=== PATIENT | female | born 1980 | race Two or more races ===

== ENCOUNTER 2019-12-28 03:36 | Emergency (ER) | payer OTHER ==
[2019-12-28] MEDS ORDERED: LIDOCAINE 1%/EPINEPHRINE INJ 20 ML VIAL INJ ONE (04:19)
--- NOTE | 2019-12-28 04:21 | ER Document Report ---
ED Wound - General Chief Complaint: Laceration Stated Complaint: HEAD LACERATION Notes: Patient is a 39-year-old female that comes emergency department for chief complaint of a head injury. She states that she had diarrhea in the bathroom tonight, she got up, slipped, struck her right forehead, and passed out. She denies any other injuries. She denies vomiting. She denies neck pain, focal numbness or weakness, or any other complaints. Tetanus is not up-to-date. She denies alcohol. Past Medical History - General Information source: Patient - Social History Smoking Status: Never Smoker Frequency of alcohol use: None Drug Abuse: None Lives with: Family Family History: Reviewed & Not Pertinent Patient has suicidal ideation: No Patient has homicidal ideation: No - Immunizations Immunizations up to date: No Hx Diphtheria, Pertussis, Tetanus Vaccination: Yes Review of Systems - Review of Systems Constitutional: No symptoms reported EENT: No symptoms reported Cardiovascular: No symptoms reported Respiratory: No symptoms reported Gastrointestinal: No symptoms reported Genitourinary: No symptoms reported Female Genitourinary: No symptoms reported Musculoskeletal: See HPI Skin: See HPI Hematologic/Lymphatic: No symptoms reported Neurological/Psychological: See HPI Physical Exam - Vital signs Vitals: Temp Pulse Resp BP Pulse Ox 97.7 F 84 16 105/65 100 12/28/19 03:56 12/28/19 03:56 12/28/19 03:56 12/28/19 03:56 12/28/19 03:56 - Notes Notes: GENERAL: Alert, interacts well. No acute distress. HEAD: Normocephalic, there is a approximately 3 cm somewhat vertical partial- thickness laceration over the right upper forehead. No signs of trauma otherwise. EYES: Pupils equal, round, and reactive to light. Extraocular movements intact. ENT: Oral mucosa moist, tongue midline. Oropharynx unremarkable. Airway patent. Nares patent, sinuses non-tender, ear canals unremarkable, TM's intact. NECK: Full range of motion. Supple. Trachea midline. No lymphadenopathy. LUNGS: Clear to auscultation bilaterally, no wheezes, rales, or rhonchi. No respiratory distress. Non-tender chest wall. HEART: Regular rate and rhythm. No murmur ABDOMEN: Soft, non-tender. Non-distended. EXTREMITIES: Moves all 4 extremities spontaneously. No edema, normal radial and dorsalis pedis pulses bilaterally. No cyanosis. BACK: no cervical, thoracic, lumbar midline tenderness. No saddle anesthesia, normal distal neurovascular exam. Moves all extremities in full range of motion. NEUROLOGICAL: Alert and oriented x3. Normal speech. Cranial nerves II through XII grossly intact. Strength 5/5 in all extremities. PSYCH: Normal affect, normal mood. SKIN: Warm, dry, normal turgor. No rashes or lesions noted. Course - Re-evaluation Re-evalutation: Because of patient's loss of consciousness with the head injury CAT scan of the head was performed but this shows no acute findings. Patient is able to ambulate without dizziness, she does have a mild headache, she has no neurological deficits, no other signs of trauma, no other areas of pain. Wound was repaired, discussed wound care, postconcussive syndrome, head injury precautions. interpreter for the deaf at bedside was used for details and for instructions. Patient states appreciation and agreement. Stable and well- appearing at time of discharge. - Vital Signs Vital signs: Temp Pulse Resp BP Pulse Ox 98.1 F 89 14 108/69 100 12/28/19 05:34 12/28/19 05:34 12/28/19 05:34 12/28/19 05:34 12/28/19 05:34 Procedures - Laceration/Wound Repair Right upper forehead Wound length (cm): 3 Wound's Depth, Shape: Irregular Laceration pre-procedure: Sterile PPE donned, Sterile drapes applied, Shur-Clens applied Anesthetic type: 1% Lidocaine w/epi Volume Anesthetic (mLs): 3 Wound explored: Clean, No foreign body removed Wound Repaired With: Dermabond Layer Closure?: Yes Deep Layer Suture Size/Type: 5:0, Chromic Number Deep Layer Sutures: 2 Post-procedure NV exam normal: Yes Complications: No Notes: After the area was cleaned thoroughly and lidocaine with epinephrine was used for anesthesia, 2 subcuticular sutures were placed with chromic, this did approximate the wound very well, after this I was able to pull it together nicely and Dermabond this superficially with good results. Discharge - Discharge Clinical Impression: Forehead laceration Qualifiers: Encounter type: initial encounter Qualified Code(s): S01.81XA - Laceration without foreign body of other part of head, initial encounter Head injury Qualifiers: Encounter type: initial encounter Qualified Code(s): S09.90XA - Unspecified injury of head, initial encounter Condition: Stable Disposition: HOME, SELF-CARE Additional Instructions: The pictures of your head are normal. The stitches underneath the skin will dissolve and do not need to come out. The wound has been closed with Dermabond, this will protect the area, this should fall off in about 5-7 days on its own. You can clean the area but avoid soaking or scrubbing the area. If the dermabond has not come off on its own after a week you can remove this by applying a topical antibiotic. Follow-up with primary care. Return for any concerning symptoms including signs of infection such as pain, developing redness, fever, or any other concerning or worsening symptoms. You have had a head injury, you can have a concussion from this which makes you have dizziness, nausea, headaches. If you get plenty of sleep this will go away faster. You can take Tylenol or ibuprofen for pain, you can take the Zofran we gave you to help with headaches. Come back for any concerning symptoms including if you start vomiting, start having a very bad headache, if your family starts noticing you are confused, or if something is not right. Las imgenes de tu galo son normales. Los puntos debajo de la piel se disolvern y no es necesario que salgan. La herida se carver cerrado con Dermabond, esto proteger el cece, esto debera caerse en unos 5-7 domingo por s solo. Puede limpiar el cece zuleima evite remojar o fregar el cece. Si el dermabond no se carver desprendido por s solo despus de anabell semana, puede eliminarlo aplicando un antibitico tpico. Seguimiento con atencin primaria. Regrese por cualquier sntoma preocupante, incluidos signos de infeccin, juli dolor, enrojecimiento, fiebre o cualquier otro sntoma preocupante o que empeore. Carver sufrido anabell lesin en la galo, puede sufrir anabell conmocin cerebral que le provoca mareos, nuseas y mike de galo. Si duermes lo suficiente, esto desaparecer ms rpido. Puede tonie Tylenol o ibuprofeno para el dolor, puede tonie el Zofran que le dimos para ayudar con los mike de galo. Regrese por cualquier sntoma preocupante, incluso si comienza a vomitar, comienza a tener un dolor de galo muy amol, si rashid aspen comienza a notar que est confundido o si algo no est nataliia.
--- NOTE | 2019-12-28 04:48 | RADIOLOGY REPORT (SQ) ---
EXAM DESCRIPTION: CT HEAD WITHOUT IV CONTRAST COMPLETED DATE/TME: 12/28/2019 04:18 CLINICAL HISTORY: head injury, knocked out COMPARISON: None available TECHNIQUE: Axial CT of the head obtained from the skull apex to the skull base without contrast. FINDINGS: No acute intracranial hemorrhage identified. No mass, mass effect, shift of the midline, abnormal extra-axial fluid collection or CT evidence of acute ischemic change identified. The ventricular system is unremarkable. No acute abnormalities of the supratentorial white matter, basal ganglia, cerebellum, or brainstem. The visualized paranasal sinuses and the mastoids are relatively well aerated. No skull fracture identified. Visualized orbits and globes are unremarkable. IMPRESSION: 1. No acute intracranial abnormality identified. This exam was performed according to our departmental dose-optimization program, which includes automated exposure control, adjustment of the mA and/or kV according to patient size and/or use of iterative reconstruction technique.
[2019-12-28] MEDS ORDERED: IBUPROFEN 600 MG TABLET PO ONE (05:00)
[2019-12-28] MEDS ORDERED: ONDANSETRON ODT 4 MG TAB (6 TAB/ER DISP) PO PRN (05:00)
[2019-12-28] MEDS ORDERED: DIPH/PERTUSS(ACELL)/TETANUS VAC/PF 0.5 ML SYR (>=10YO) IM ONE (05:04)
[2019-12-28 05:36] VITALS: BP 108/69
== END 2019-12-28 05:38 | disposition home or self-care (01) ==
LOC: ER 03:36
DX: S06.9X9A Unspecified intracranial injury with loss of consciousness of unspecified duration, initial encounter (principal); S01.81XA Laceration without foreign body of other part of head, initial encounter; W01.0XXA Fall on same level from slipping, tripping and stumbling without subsequent striking against object, initial encounter; Z23 Encounter for immunization
CPT/HCPCS: 99283; 90471; 70450; 90715; 12052; J3490

== ENCOUNTER 2020-01-22 08:57 | Day surgery (SDC) | payer OTHER ==
[~2020-01-22 08:57] MED LIST: PROPOFOL INJ 200 MG/20 ML VIAL IV ONE
[2020-01-22 12:06] VITALS: BP 116/84
--- NOTE | 2020-01-22 13:42 | Operative Report ---
Operative Report DATE OF SURGERY: 01/22/20 Operative Report: The risk, benefits and alternatives of the procedure including the risk of bleeding, perforation requiring surgery have been explained to the patient in detail and informed consent has been obtained. Patient is taken back to the operating room and placed in a left, lateral decubital position. Timeout was called. Propofol medication is administered. Rectal examination is done which did not reveal any masses, tears or fissures. An Olympus videoscope was introduced into the patient's rectum. Scope was then carefully advanced all the way to the cecum. The cecum was identified by the usual anatomical landmarks including the ileocecal valve as well as the appendiceal office. Photodocumentation is obtained. Scope was then sequentially pulled back via the various segments of the colon including the ascending colon, hepatic flexure, transverse colon, splenic flexure, descending colon finally into the rectosigmoid portions of the colon. Retroflexion maneuver is performed. PREOPERATIVE DIAGNOSIS: Change in bowel habits POSTOPERATIVE DIAGNOSIS: Right side colon Inflammation status post biopsy. Internal hemorrhoids OPERATION: Colonoscopy with biopsy SURGEON: MILKA GUILLORY ANESTHESIA: LMAC TISSUE REMOVED OR ALTERED: As noted above. COMPLICATIONS: None. ESTIMATED BLOOD LOSS: None. INTRAOPERATIVE FINDINGS: As noted above. PROCEDURE: Patient tolerated the procedure well. No immediate postprocedure complications are noted. Patient is discharged in good condition. Discharge date 01/22/2020. Discharge diet: Regular. Discharge activity: Regular. 2 to 3-week follow-up to discuss findings. Patient is instructed to call the office or proceed to the emergency room should there be any further problems questions. Wait on the pathology.
== END 2020-01-22 12:00 | disposition home or self-care (01) ==
LOC: OROUT 08:57 → EDBD 14:00
PROVIDERS: ATTEND Internal Medicine Gastroenterology
DX: K52.9 Noninfective gastroenteritis and colitis, unspecified (principal); K64.8 Other hemorrhoids
CPT/HCPCS: 45380; 88305 ×2; 00811; J2704; 811